=== PATIENT | female | born 1940 | race Caucasian/White ===

== ENCOUNTER 2024-12-09 13:54 | Outpatient (CLI) | payer OTHER, SELFPAY ==
--- NOTE | 2024-12-09 14:00 | CRLHL7_ITS ---
For Patients: As a result of the Century Cures Act, medical imaging exams and procedure reports are released immediately into your electronic medical record. You may view this report before your referring provider. If you have questions, please contact your health care provider. EXAM: CT OF THE BILATERAL TMJS, WITHOUT CONTRAST CLINICAL INDICATION: Right-sided TMJ clicking. X does not line up. Arthritis. COMPARISON PLAIN FILMS: None. COMPARISON CROSS-SECTIONAL IMAGING STUDIES: None. TECHNICAL: Non-contrast CT of the skull base and TMJ region bilaterally with axial images. Sagittal oblique and coronal oblique images were created included small [id number] reformats of the TMJ region bilaterally. FINDINGS: RIGHT TMJ: Advanced osteoarthritis. There is flattening and remodeling of the mandibular condyle with mild hypertrophic change. Narrowing of the joint space. Anterior positioning of the mandibular condyle. No erosive change in the mandibular fossa. No calcific loose bodies. LEFT TMJ: No osseous remodeling of the mandibular condyle or mandibular fossa region. No narrowing of the joint space. Normal positioning of the mandibular condyle. MUSCLES: No atrophy of the muscles of mastication. No intramuscular mass. SOFT TISSUES: No soft tissue abnormality is evident. OSSEOUS STRUCTURES: No fracture or osseous lesion. PARANASAL SINUSES: Membrane thickening or retention cyst in the right maxillary sinus. The remaining paranasal sinuses and mastoid air cells are clear. INTRACRANIAL CONTENTS: No intracranial mass or mass effect. IMPRESSION: 1. 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 2. The left TMJ is unremarkable. 3. Membrane thickening or retention cyst in the right maxillary sinus. Please note that all CT scans at this facility use dose modulation, iterative reconstruction, and/or weight-based dosing when appropriate to reduce radiation dose to as low as reasonably achievable. Dictated by Madhu Winkler MD @ 12/10/2024 10:39:08 AM (Electronically Signed)
== END 2024-12-09 13:55 | disposition home or self-care (01) ==
LOC: CT 13:57
PROVIDERS: PCP Family Medicine; Visit Provider Dentist
DX: M26.631 Articular disc disorder of right temporomandibular joint (principal); M19.09 Primary osteoarthritis, other specified site; J32.0 Chronic maxillary sinusitis
CPT/HCPCS: 70480

== ENCOUNTER 2025-03-16 11:51 | Emergency (ER) | payer OTHER, SELFPAY ==
--- OUTSIDE RECORDS SUMMARY | 2025-03-16 11:52 | XMS_ITS | Clinical Summary ---
Author Organization [facility] Address [address] [place] [id number] Care Team Providers Care Mechanical Artist Name Role Phone Nadiya Vázquez MD Unavailable [phone] Renae Salter MD Primary Care Provide r Allergies No known active allergies Medications biotin-keratin 10,000-100 mcg-mg tab Take 1 Capsule by mouth once daily. 0 10/24/19 22 Active psyllium powd Mix 1 tsp in liquid then take by mouth once daily if needed for Constipation. 283 g 11 10/24/19 22 Active coenzyme q10 (Co Q-10) 100 mg cap Take 1 Capsule (100 mg) by mouth once daily. 0 10/24/19 22 Active nitrofurantoin macrocrystals/mono hydrate (MACROBID) 100 mg capsuleIndications :UTI (urinary tract infection), uncomplicated TAKE 1 CAPSULE BY MOUTH 1 TIME AFTER INTERCOURSE 30 Capsule 2 03/08/20 24 Active atorvastatin 10 mg tabletIndications: Mixed hyperlipidemia Take 1 Tablet (10 mg) by mouth at bedtime. 90 Tablet 3 10/08/19 25 Active metoprolol tartrate 25 mg tabletIndications: Paroxysmal atrial fibrillation (HC) Take 1 Tablet (25 mg) by mouth two times daily. 180 Tablet 3 10/08/19 25 Active apixaban 5 mg tabletIndications: Typical atrial flutter (HC) Take 1 Tablet (5 mg) by mouth two times daily. 180 Tablet 3 10/08/19 25 Active torsemide 5 mg tabletIndications: Bilateral lower extremity edema Take 1 Tablet (5 mg) by mouth once daily. At noon 90 Tablet 3 10/08/19 25 Active Active Problems Problem Noted Date Diagnosed Date Type 2 diabetes mellitus wit hout complication, without long-term current use of insulin 09/04/2023 Typical atrial flutter 12/17/2021 Postmenopausal atrophic vaginitis 10/16/2018 UTI (urinary tract infection), uncomplicated Overview (01/10/2017): 10/2016;11/2016; 12/2016-GFR 56 Sensorineural hearing loss, bilateral 07/29/2016 Tinnitus of left ear 07/29/2016 Adenomatous colon polyp 02/14/2016 Overview (02/14/2016): Colonoscopy 01/2016 polyp repeat in 5 years Osteoporosis 01/31/2016 Overview (01/31/2016): DEXA 01/2016 - started Fosamax Immunizations Immunization Administration Dates Next Due Influenza, Inactivated AIIV4 (Age 65+ Years) Preserv Free 05/16/2023 Influenza, Inactivated IIV3 (Age 65+ Years) Preserv Free 04/09/2024 Pneumococcal Poly,23-Valent (Pneumovax) 01/23/20 17 Pneumococcal conj 13-Valent (Prevnar 13) 016 Td (Age >=7 Years) 10/14/1995 Tdap 09/05/2014 Zoster (Shingrix-RZV, recombinant) 06/16/2019, Family History Medical History Relation Name Comments Cancer Father liver cancer GI Disease Father Gi ulcers Good Health Mother car accident Anesthesia Problem No Family History Blood Disease No Family History Cancer-breast No Family History Relation Name Status Comments Father Mother Social History Tobacco Use Types Packs/Day Years Used Date Smoking Tobacco: Never Smokeless Tobacco: Never Tobacco Cessation:Counseling Given: Yes Alcohol Use Standard Drinks/Week Comments Yes 7 (1 standard drink = 0.6 oz pur e alcohol) occassional PHQ-2 Answer Date Recorded PHQ-2 TOTAL SCORE 0 10/07/2024 Social Connections Answer Date Recorded Do you often feel lonely or isolated from those around you? 0 10/07/2024 Financial Resource Strain Answer Date R ecorded Difficulty of Paying Living Expenses 3 10/07/2024 Difficulty of Paying Living Expenses Not on file 10/07/2024 Food Insecurity Answer Date Recorded Do you worry your food will run out before you are able to buy more? 1 10/07/2024 Transportation Needs Answer Date Record ed Does lack of transportation keep you from medica l appointments? 1 10/07/2024 Does lack of transportation keep you from work, meetings or getting things that you need? 1 10/07/2024 Housing Stability Answer Date Recorded What is your housing situation today? 1 10/07/2024 Utilities Answer Date Recorded Do you have trouble paying f or utilities (for example, heat, electricity, water, phone)? 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 Gender Identity Not on file Sexual Orientation Not on file Obstetrics History Para Term AB IAB SAB Ectopic Multiple Livin g Live Births 0 0 0 Last Filed Vital Signs Vital Sign Reading Time Taken Comments Blood Pressure 138/88 10/07/2024 10:05 AM CDT Pulse 74 10/07/2024 10:05 AM CDT Temperature 36.3 C (97.3 F) 08/28/2023 3:45 PM COMMERCIAL ARTIST LETTERING Respiratory Rate 16 08/28/2023 3:45 PM COMMERCIAL ARTIST LETTERING Oxygen Saturation 97% 10/07/2024 10:05 AM CDT Inhaled Oxygen Concentration - - Weight 60.5 kg (133 lb 4.8 oz) 10/07/2024 10:05 AM CDT Height 172.1 cm (5' 7.75) 10/07/2024 10:05 AM C DT Body Mass Index 20.42 10/07/2024 10:05 AM CDT Plan of Treatment Upcoming Encounters Date Type Department Care Team (Late st Contact Info) Description 04/05/2025 11:00 AM CDT Ancillary Procedure [facility] [address] [place] [address] 04/08/2025 Cardiac Device Check [facility] [phone] 04/12/2025 1:00 PM CDT Office Visit [facility] [place] [address] Norman Sanchez MD [address] [place] [address] 08/09/2025 Cardiac Device Check [facility] [phone] Health Maintenance Due Date Last Done Comments RSV vaccine for adults or (1 - 1-dose 75+ series) 2013 Medicare Wellness for age 65+ 05/16/2024 05/16/2023, 10/23/2021, 12/09/2018, Additional history exists Tetanus booster 09/05/2024 09/05/2014, 10/14/1995 COVID-19 vaccine series (2023- season) 2025 Influenza Vaccine (#1) 2025 04/09/2024, 2022 BMI (ht and wt on same day) for age 18+ 10/07/2025 10/07/2024, 08/21/2023, 05/16/2023, Additional history exists Depression screening for age 12+ 10/07/2025 10/07/2024, 10/07/2024, 05/16/2023, Additional history exists Pneumococcal series for age 50+ Completed 01/22/2017, 01/04/2016 Zoster (shingles) series for age 50+ Completed 06/16/2019, 04/11/2019 DEXA/DXA scan for age 65+ Completed 2021, 12/10/2018, 01/04/2016 Hepatitis B series for 19+ Aged Out N o longer eligible based on patient's age to complete this topic Procedures Procedure Name Priority Date/Time Associated Diagnosis Comments XR DXA BONE DENSITY 2 SITES AXIAL Routine 12/18/2021 9:44 AM CDT Osteopenia, unspecified location Menopause from Last 3 Months or Most Recently Relevant to Health Maintenance Results * (ABNORMAL) XR DXA BONE DENSITY 2 SITES AXIAL (12/18/2021 9:44 AM CDT) Anatomical Region Laterality Modality Spine, HIPS, HIPL, HIPR Other Impressions 12/24/2021 8:12 AM CDT Osteopenia. RECOMMENDATIONS: The National Osteoporosis Foundation recommends pharmacologic treatment for patients with T-scores of -2.5 or less, patients with prior history of fragility fractures, or patients with 10-year probability of greater than 3% at hips or greater than 20% of suffering major osteoporotic fractures. Recommend continued optimization of calcium and vitamin D intake through dietary means and/or supplementation and regular exercise. Consider pharmacologic therapy for osteopenia with increased fracture risk. Follow-up bone density reading in 2 years if therapy initiated to assess therapeutic efficacy. Fabiola Young PA-C [facility] 12/24/2021 Narrative 12/24/2021 8:12 AM CDT For Patients: Results are automatically released to your [facility] ([email or web address]) account once available, in compliance with federal regulations. This means that you may see your results before your provider has had a chance to review them. Please allow 2-3 business days for your provider to comment on the results. XR DXA Bone Mineral Density (BMD) EXAM LOCATION: [address] [address] PATIENT NAME: Britany Reilly DATE OF : 1940 EXAM DATE: 12/18/2021 REQUESTING PROVIDER: Renae Salter MD GENDER AT : female HEIGHT: 5' 8.5 (10/23/2021) WEIGHT: 135 lb (11/23/2021) MENOPAUSAL STATUS: Postmenopausal RACE/ETHNICITY: White RISK FACTORS: White Race CURRENT MEDICATION FOR BONE LOSS: NONE INDICATION: Follow-up of existing osteopenia and Menopause COMPARISON DATE(S): 2018 DXA scans are compared to prior studies for a patient only when the two (or more) studies were performed on the same scanner. It is not possible to compare data generated on one scanner to data from another because there are not standards in DXA equipment. This applies even if the two scanners are made by the same clinical research tech. PROCEDURE: Dual-energy x-ray absorptiometry performed with routine technique. Reporting is completed in the form of a T-score. The T-score represents the standard deviation from peak bone mass based on young healthy adult. A Z-score is used for diagnosis in premenopausal women, and for men under the age of 50. FINDINGS: RESULT LUMBAR SPINE L1 - L3 BMD: 0.856 g/cm2 T-Score: - 2.7 Z-Score: - 0.6 Change from prior in 2019: Decrease 4.6%. RESULTS FEMUR Left femoral neck BMD: 0.751 g/cm2 T-Score: - 2.1 Z-Score: + 0.3 Change from prior in 2019: Increase 1.1%. Right femoral neck BMD: 0.728 g/cm2 T-Score: - 2.2 Z-Score: + 0.2 Change from prior in 2019: Increase 1.1%. Left hip BMD: 0.753 g/cm2 T-Score: - 2.0 Z-Score: + 0.3 Change from prior in 2019: Decrease 4.0%. Right hip BMD: 0.767 g/cm2 T-Score: - 1.9 Z-Score: + 0.4 Change from prior in 2019: Decrease 2.4%. WHO criteria: Normal: T-score at or above -1 SD Osteopenia: T-score between -1.1 and -2.4 SD Osteoporosis: T-score at or below -2.5 SD FRAX RISK CALCULATION (USED FOR OSTEOPENIA ONLY): 10-year probability of major osteoporotic fracture: 14.5%. 10-year probability of hip fracture: 5.2%. 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
[2025-03-16 12:03] VITALS: BP 126/85; PULSE 82; RESP 16; TEMP 36.8; O2SAT 97; BMI 20.1
[2025-03-16 12:17] LABS: Appearance Urine Cloudy (Clear)
--- NOTE | 2025-03-16 13:23 | ED_ITS ---
HPI - Female Genitourinary General Chief complaint: Urogenital Problems, Female Stated complaint: UTI Time Seen by Provider: 03/16/25 12:40 History of Present Illness HPI Narrative: This 84-year-old female comes in reporting dysuria symptoms that began yesterday. She has increased frequency and pain when passing urine. She arrives here with normal vital signs. Related Data Home Medications ?Medication ?Instructions ?Recorded ?Confirmed apixaban 5 mg tablet (Eliquis) 5 mg PO BID 03/16/25 atorvastatin 10 mg tablet 10 mg PO DAILY 03/16/2502/28 metoprolol tartrate 25 mg tablet 25 mg PO BID 03/16/25 03/16/25 Previous Rx's ?Medication ?Instructions ?Recorded cephalexin 500 mg capsule 500 mg PO TID 7 days #21 cap s 03/16/25 Allergies Allergy/AdvReac Type Severity Reaction Status Date / Time No Known Drug Allergies Allergy Verified 03/16/25 12:07 Review of Systems Status of ROS: Reports: 10 or more systems reviewed and unremarkable except as noted in History and below Narrative: Constitutional: No fevers, no weight gain or loss. Eyes: No discharge. No vision changes. HENT: No congestion, no sore throat, no ear pain. Cardiovascular: No chest pain, no palpitations. Respiratory: No shortness of breath, no wheezes, no cough. Gastrointestinal: No abdominal pain, no vomiting, no diarrhea. Genitourinary: Dysuria symptoms as described above. Musculoskeletal: Normal range of motion. Skin: No rashes, no pruritis. Neurological: No dizziness, weakness, sensory change, speech change. Endo/Heme/Allergies: No bruising or bleeding. No polydipsia. Pysch: no suicidality, no anxiety, no insomnia. All other systems reviewed and are negative. Exam Narrative: Exam Narrative: Constitutional: Well-developed, well-nourished, no acute distress. HEENT: Normocephalic, atraumatic. Neck: Normal range of motion. Nontender. Supple. Heart: Regular. No murmurs. Normal rate. Intact distal pulses. Lungs: Clear to auscultation. No chest discomfort. No wheezes, rhonchi, or rales. Abdomen: Normal bowel sounds. Tenderness in the lower abdomen. No rebound tenderness. Genitalia: Deferred. Back: No midline tenderness. Normal range of motion. Extremities: Normal range of motion. No injury. Skin: Intact. No rash. Warm. No erythema or pallor. Neurologic: No altered sensation. No weakness. Alert and oriented. Psychiatric: No suicidality. No anxiety or depression. No insomnia. Nursing notes and vitals signs are reviewed. Const: Vital Signs, click to edit/add: Vital Signs - 24 hr 03/16/25 12:03 Temperature 98.3 F Pulse Rate [Pulse Oximeter] 82 Respiratory Rate 16 [facility] 126/85 Pulse Oximetry 97 Oxygen Delivery Me thod Room Air Course Vital Signs Vital signs: Initial Vital Signs Temperature 98.3 F 03/16/25 12:03 Temperature Source Temporal Artery Scan 03/16/25 12:03 Pulse Rate 82 03/16/25 12:03 Respiratory Rate 16 03/16/25 12:03 Blood Pressure 126/85 03/16/25 12:03 Blood Pressure Mean 98 03/16/25 12:03 Blood Pressure Position Sitting 03/16/25 12:03 Pulse Oximetry 97 03/16/25 12:03 Oxygen Delivery Method Room Air 03/16/25 12:03 Vital Signs Temperature 98.3 F 03/16/25 12:03 Pulse Rate 82 03/16/25 12:03 Respiratory Rate 16 03/16/25 12:03 Blood Pressure 126/85 03/16/25 12:03 Pulse Oximetry 97 03/16/25 12:03 Oxygen Delivery Method Room Air 03/16/25 12:03 Temperature 98.3 F 03/16/25 12:03 Pulse Rate 82 03/16/25 12:03 Respiratory Rate 16 03/16/25 12:03 Blood Pressure 126/85 03/16/25 12:03 Pulse Oximetry 97 03/16/25 12:03 Oxygen Delivery Method Room Air 03/16/25 12:03 MDM - Female Genitourinary MDM Narrative Medical decision making narrative: This patient comes in with dysuria symptoms as described above. Urinalysis shows obvious sign of infection. The patient has normal vital signs and is in no acute distress. I did send prescriptions for Keflex and encouraged her also to use [id number]-[id number] medicines such as azo for symptomatic relief. Lab Data Labs: Lab Results 03/16/25 Range/Units 12:10 Urine Color Dark yellow (Yellow) Urine Appearance Cloudy A (Clear) Urine pH 7.0 (5.0-8.5) Ur Specific [place] 1.020 (1.000-1.030) Urine Protein 3+ A (Negative) Urine Glucose (UA) Negative (Negative) Urine Ketones Negative (Negative) Urine Blood 3+ A (Negative) Urine Nitrite Negative (Negative) Urine Bilirubin Negative (Negative) Urine Urobilinogen 1.0 (0.2-1.0) Ur Leukocyte Esterase 2+ A (Negative) Urine RBC >100 A (0-2) Urine WBC >100 A (0-5) Ur Squamous Epith Cells None (None-Few) Urine Bacteria Few A (None) Discharge Plan Discharge Clinical Impression: Urinary tract infection Patient Disposition: Home, Self-Care Condition: Stable Additional Instructions: Take medication as prescribed. Use [id number] medicine such as azo, Urostat, Prodium also as needed and directed for symptomatic relief. Follow up with MD return if worsening. Prescriptions: New cephalexin 500 mg capsule 500 mg PO TID 7 Days Qty: 21 0RF No Action atorvastatin 10 mg tablet 10 mg PO DAILY metoprolol tartrate 25 mg tablet 25 mg PO BID Eliquis 5 mg tablet 5 mg PO BID Follow Up/Referrals: Renae Salter MD [Primary Care Provider, Family Practice] Stand Alone Forms: [employer] Info Instructions
== END 2025-03-16 13:39 | disposition home or self-care (01) ==
LOC: ED 13:33
PROVIDERS: Emergency Provider Emergency Medicine Emergency Medical Services; PCP Family Medicine
DX: N39.0 Urinary tract infection, site not specified (principal)
CPT/HCPCS: 81001; 87086; 99283; 99284